=== PATIENT | female | born 1990 | race Caucasian/White ===

== ENCOUNTER 2017-12-07 00:52 | Emergency (ER) | payer MEDICAID ==
--- NOTE | 2017-12-07 01:43 | OBHP ---
Datetime: 12/07/2017 01:28 IP Adm Impression: , intrauterine ; No Active Labor IP Admit Plan: Discharge home Admit Comment, IP Provider: 27 y.o. , LMP 03/29/17, ESTEBAN 01/03/18, EGA 36w 1d c/o Ctx, onset 0500 hours 12/06/16; increasing throughout the day. Much stronger 2300 hours, pain scale 8/10, every 6-7 mnutes, and spacing out. (+) AFM, denies LOF, VB. care: [facility] - noted for 6th digit on fee t of fetus. Was to have ECHO - not done "insurance wouldn't cover it". No other issues P OB: x 2: 2010, 39 w, female, 5lb 10 oz. 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 2010, (+)chlamydiia. Denies fibroids or abnormal Pap PMH: denies PSH: denies NKDA Meds: PNV Soc Hx: denies tobacco, illicit drug or EtOH use. With FOB x 2 years. 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 Live s with her children Fam Hx: Mother alive 46 y.o. no med issues. Father due GSW. No known fam h/o cancer P.E.: as above. WD in NAD. Awake, alert, oriented to time, person and place. Pleasant and coopera tive Assessment: 27 y.o. P1102, 36w 1d, false labor. Category 1 tracing. GBS pending. Clinically stable . Plan: 1) Discharge home 2) Reviewed S/S PTL 3) Call to reschedule appointment: missed appt 12/05/17 Pelvic Type - PN: Adequate Extremities - PN: Normal Abdomen - PN: Normal Back - PN: Normal Breast - PN: Normal Lungs - PN: Normal Heart - PN: Normal Thyroid - PN: Not Done Neurologic - PN: Normal HEENT - PN: Normal General - PN: Normal FHR - Baseline A Provider: 130 Contraction Comments Provider: irregular Comments, ACOG Physical Exam: Abdomen: Gravid. Soft. Non tender All other systems reviewed and are negative Gestation - Est Wks by US: 36w 1d IP Hx Assessment: The History has been Reviewed and is Current EGA AdmitDate IP: 36.1 Vital Signs Provider: Reviewed; Within Normal Limits IP Chief Complaint: Uterine contractions NICHD Variability Prov Fetus A: Moderate 6-25bpm NICHD Accel Fetus A IP Provider: 15X15 FHR Category Provider Fetus A: Category I NICHD Decel Fetus A IP Provider: None Dilatation, Provider: FT Effacement, Provider: 50 Station, Provider: -3 Genitourinary Exam: Normal DTRs - PN: Not Done
[2017-12-07 08:57] VITALS: BP 126/73; PULSE 76; RESP 20; TEMP 97
== END 2017-12-07 01:39 | disposition home or self-care (01) ==
LOC: C.EROB 00:52
DX: O47.03 False labor before 37 completed weeks of gestation, third trimester (principal); Z3A.36 36 weeks gestation of pregnancy

== ENCOUNTER 2017-12-14 10:40 | Emergency (ER) | payer MEDICAID ==
--- NOTE | 2017-12-14 11:25 | OBDCSUM ---
Datetime: 12/07/2017 01:28 Disch Activity Restrictions: No sexual activity; Nothing in vagina - [place], tampons, douche Discharge Comment, Provider: dc home labor given po hy f/u clinic on tomorrow Discharge Diagnosis Prov Other: 37week nst false labor
--- NOTE | 2017-12-14 11:25 | OBHP ---
Datetime: 12/14/2017 11:19 IP Adm Impression: Term, intrauterine IP Admit Plan: Discharge home Admit Comment, IP Provider: at 37.1weeks came with c/o cts started yesterday, irrg , little anne ser than before, 11/05,no vb, lof+fm oibhx x pmh den med pnv all nkda psh den soch de ve closed a/p at 37+weeks in early labor dc home labor given po hy f/u clinic on tomorrow Pelvic Type - PN: Adequate Extremities - PN: Normal Abdomen - PN: Normal Back - PN: Normal Breast - PN: Normal Lungs - PN: Normal Heart - PN: Normal Thyroid - PN: Normal Neurologic - PN: Normal HEENT - PN: Normal General - PN: Normal FHR - Baseline A Provider: 140 Contraction Comments Provider: occ IP Hx Assessment: The History has been Reviewed and is Current EGA AdmitDate IP: 37.1 Vital Signs Provider: Reviewed; Within Normal Limits IP Chief Complaint: Uterine contractions NICHD Variability Prov Fetus A: Moderate 6-25bpm NICHD Accel Fetus A IP Provider: 15X15 FHR Category Provider Fetus A: Category II Dilatation, Provider: 0 Effacement, Provider: 40 Station, Provider: -3 Genitourinary Exam: Normal DTRs - PN: Normal
[2017-12-15 13:56] VITALS: BP 114/71; PULSE 92
== END 2017-12-14 11:50 | disposition home or self-care (01) ==
LOC: C.EROB 10:40
DX: O47.1 False labor at or after 37 completed weeks of gestation (principal); Z3A.37 37 weeks gestation of pregnancy

== ENCOUNTER 2018-01-10 19:43 | Inpatient (IN) | payer MEDICAID ==
[2018-01-10] MEDS ORDERED: Lactated Ringer's 1,000 ML IV SCH (20:45)
[2018-01-10] MEDS: Lactated Ringer's 1,000 ML IV SCH ×2 (20:55→22:15)
--- NOTE | 2018-01-10 20:58 | OBHP ---
Datetime: 01/10/2018 20:39 IP Adm Impression: Postterm, intrauterine ; No Active Labor; Intact Membranes IP Chief Complaint Other: pelvic pressure/ abdominal tightening IP Admit Plan: Admit to unit IP Admit Plan Other: Cervical ripening Admit Comment, IP Provider: 27 y.o. , LMP 03/29/17, ESTEBAN 01/03/18, EGA 41 weeks, c/o abdominal ti ghtening -intensifying all day today. (+) AFM; denies LOF, VB. Last had sexual intercourse 2 days ago . care: [facility]- - noted for (+) chlamydia -diagnosed 11/28/17; both patient and FOB treated 12/09/17. Denies any other issues. P Ob: x 2: 2011, 39 weeks, female, 5lb 11 oz. 2011, 36 weeks, male, 5lb 15 oz; no complication s. 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 2011, 9=0 chlamydia. Denies abnormal Pap, fibroids, ovarian cysts. PMH: denies PSH: denies NKDA Meds: PNV Soc Hx: denies tobacco, illicit drug or EtOH use.With FOB x 2 years. 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 Fam Hx. Mother alive 47 - no med issues. Father 2016, homicide. MGM - HTN, DM. No known f am h/o cancer P.E.: as above. WD in NAD. Awake, alert, oriented to time, person and place. Pleasant and cooperat misty Assessment: 27 y.o. P2, 41 weeks, prolonged latent phase of labor. Will admit for delivery. D/W pa tient cervical ripening; possible pitocin. Also D/W patient options for pain relief, if desires. Lisa ent expressed an understanding and agrees. No questions offered. Category 1 tracing. Patient is clini leonidas stable. Plan: 1) Admit 2) NPO 3) admission labs 4) Continuous EFM 5) Cytotec p.o. 6) Pain relief, upon request 7) Anticipate vaginal delivery Pelvic Type - PN: Adequate Extremities - PN: Normal Abdomen - PN: Normal Back - PN: Normal Breast - PN: Not Done Lungs - PN: Normal Heart - PN: Normal Thyroid - PN: Normal Neurologic - PN: Normal HEENT - PN: Normal General - PN: Normal Weight - Estimated: 7lb Presentation-Admit: Vertex FHR - Baseline A Provider: 135 Membranes, Provider: Intact Contraction Comments Provider: irregular Comments, ACOG Physical Exam: Abdomen: Gravid. soft. Non tender. Fundal height 39 cm All other systems reviewed and are negative Gestation - Est Wks by US: 41.0 IP Hx Assessment: The History has been Reviewed and is Current EGA AdmitDate IP: 41.0 Vital Signs Provider: Reviewed IP Indication for Induction: Postterm IP Chief Complaint: Other NICHD Variability Prov Fetus A: Moderate 6-25bpm NICHD Accel Fetus A IP Provider: 15X15 FHR Category Provider Fetus A: Category I NICHD Decel Fetus A IP Provider: None Dilatation, Provider: 2 Effacement, Provider: 30 Station, Provider: -3 Genitourinary Exam: Normal
[2018-01-10 21:40] LABS: SQUAMOUS EPITHIAL 2 /hpf (0-5); URINE BILIRUBIN NEGATIVE (NEGATIVE); URINE BLOOD NEGATIVE (NEGATIVE); URINE CLARITY Clear (Clear); URINE COLOR Yellow (YELLOW); URINE GLUCOSE (UA) NORMAL (Normal); URINE LEUKOCYTE ESTERASE NEG Leu/uL (Negative); URINE PROTEIN NEGATIVE (NEGATIVE); URINE UROBILINOGEN NORMAL mg/dL (0.2-1.0)
[2018-01-10 21:42] LABS: BASO % 0.4 % (0.0-2.0); EOS # 0.1 K/uL (0.0-0.7); EOS % 0.7 % (0.0-4.0); HEMOGLOBIN 11.8 g/dL (11.0-16.0); LYMPH % 21.4 % (20.0-40.0); MEAN CELL VOLUME 80.8 fL (81.0-99.0); MEAN CORPUSCULAR HEMOGLOBIN 27.5 pg (27.0-31.0); MEAN CORPUSCULAR HGB CONC 34.1 g/dL (33.0-37.0); MEAN PLATELET VOLUME 10.1 fL (7.2-11.7); MONO # 0.8 K/uL (0.0-0.8); MONO % 9.1 % (0.0-10.0); NEUT # 6.4 K/uL (1.8-7.0); NEUT % 68.4 % (50.0-75.0); RBC 4.27 Mil/uL (3.80-5.20); RED CELL DISTRIBUTION WIDTH 16.9 % (11.5-14.5); WHITE BLOOD COUNT 9.3 K/uL (4.8-10.8)
[2018-01-10 21:47] LABS: ALB/GLOB RATIO 0.9 (1.0-2.1); ALBUMIN 3.3 g/dL (3.5-5.0); ALT/SGPT 26 U/L (9-52); AST/SGOT 40 U/L (14-36); BLOOD UREA NITROGEN 12 mg/dL (7-17); GFR AFRICAN-AMERICAN > 60; GFR NON-AFRICAN AMERICAN > 60
[2018-01-11] MEDS ORDERED: Nalbuphine 20 mg/ml Inj (1 ml) IVP PRN (01:45)
[2018-01-11] MEDS ORDERED: Promethazine DM 6.25 mg-15 mg/5 ml Syrup PO STA (01:45)
[2018-01-11] MEDS ORDERED: Oxytocin 20 units in LR 2,000 ML IV ONE (04:20)
[2018-01-11] MEDS ORDERED: Lidocaine 2% MPF (5 ml) Inj ONE (04:43)
[2018-01-11] MEDS ORDERED: Oxycodone/Acetaminophen 5/325 mg Tab PO PRN (05:20)
--- NOTE | 2018-01-11 05:34 | OBDS ---
DELIVERY PERSONNEL Delivery Doctor: Franc Waddell MD MATERNAL INFORMATION Delivery Anesthesia: None Medications in Delivery: Nubain 10mg and phenergan syrup 5cc Estimated Blood Loss (ml): 300 Placenta Cultured: No Maternal Complications: None Provider Comments: Uncomplicated vaginal delivery live male infant, DOUGLAS. position, weight 7lb 8oz, A pgar's 05/07. 's mouth and nose bulb-suctioned on perineum. Umbilical cord doubly clamped and cut ; infant placed on mother's abdomen. Spontaneous delivery of placenta - grossly normal; 3 vessel cord . Uterine exploration performed - uterus contracted and firm. Cervix, vagina, perineum inspected - first degree laceration as above; repaired. Hemostasis assur ed. Mother and bonding; both in stable condition LABOR SUMMARY EDC: 01/03/2018 00:00 No. Babies in Womb: 1 Attempted: No Labor Anesthesia: None LABOR INFORMATION Reason for Induction: Postterm Onset of Labor: 01/11/2018 00:00 Complete Dilatation: 01/11/2018 04:15 Cervical Ripening Agents: Cytotec @ Oxytocin: N/A Group B Beta Strep: Negative Antibiotics # of Doses: 0 Antibiotics Time of Last Dose: 0 Steroids Given: None Reason Steroids Not Administered: Not Applicable MEMBRANES Membranes Rupture Method: Spontaneous Rupture of Membranes: 01/11/2018 04:00 Length of Rupture (hrs): 0.45 Amniotic Fluid Color: Clear Amniotic Fluid Amount: Small Amniotic Fluid Odor: Normal STAGES OF LABOR Stage 1 hrs: 4 Stage 1 min: 15 Stage 2 hrs: 0 Stage 2 min: 12 Stage 3 hrs: 0 Stage 3 min: 9 Total Time in Labor hrs: 4 Total Time in Labor min: 36 VAGINAL DELIVERY Episiotomy: None Laceration Extension: First Degree Laceration Type: Vaginal Laceration Repair: Yes Laceration Repair Note: 3-0 chromic - running interlocking. Hemostasis assured. Patient tolerated pr ocedure well Initial Vag Sponge Count: 10 Final Vag Sponge Count: 10 Initial Vag Sharps Count: 1 Final Vag Sharps Count: 1 Sponge Count Correct: Yes Sharps Count Correct: Yes Count Comment: Correct BABY A INFORMATION Infant Delivery Date/Time: 01/11/2018 04:27 Method of Delivery: Vaginal Born in Route : No : N/A Forceps: N/A Vacuum Extraction: N/A Shoulder Dystocia : No SHOULDER DYSTOCIA BABY A Delivery Date/Time: 01/11/2018 04:27 PRESENTATION/POSITION BABY A Presentation: Cephalic Cephalic Presentation: Vertex Vertex Position: Left Occipital Anterior Breech Presentation: N/A PLACENTA INFORMATION BABY A Placenta Delivery Time : 01/11/2018 04:36 Placenta Method of Delivery: Spontaneous Placenta Status: Delivered SCORES BABY A Heart Rate 1 min: >100 bpm Resp Effort 1 min: Good Cry Reflex Irritability 1 min: Cough or Sneeze or Pulls Away Muscle Tone 1 min: Active Motion Color 1 min: Body [place], Extremities Blue SCORE 1 MIN: 9 Heart Rate 5 min: >100 bpm Resp Effort 5 min: Good Cry Reflex Irritability 5 min: Cough or Sneeze or Pulls Away Muscle Tone 5 min: Active Motion Color 5 min: Body [place], Extremities Blue SCORE 5 MIN: 9 INFORMATION BABY A Gestational Age at Delivery: 41.1 Gestational Status: Term Outcome : Liveborn Condition : Stable Sex: Male IDENTIFICATION/MEDS BABY A ID Band Number: [id number] ID Band Location: Left Leg; Left Arm Sensor Applied: Yes Sensor Number: [id number] Sensor Location : Cord Clamp Vitamin K Given : Aquamephyton 1 mg IM; Left Thigh Erythromycin Given: Given Both Eyes WEIGHT/LENGTH BABY A Infant Birthweight (gms): 3410 Infant Weight (lb): 7 Weight (oz): 8 Infant Length Inches: 20.00 Length cms: 50.8 CORD INFORMATION BABY A No. Cord Vessels: 3 Nuchal Cord : N/A Cord Blood Taken: Yes Suction: Mouth; Nose ASSESSMENT BABY A Complications: None Physical Findings at Delivery: Within Normal Limits Respirations: Appears Normal Offal Icer Poultry/ALS Called : No Care By: Ivone Transferred To: Remains with Mother
[2018-01-11] MEDS ORDERED: Benzocaine/Menthol 20%-0.5% Topical Spray (60 ml) TOP SCH (06:00)
[2018-01-11] MEDS: Multiple Vitamins Tab PO SCH (09:56)
[2018-01-12 08:32] LABS: BASO # 0.1 K/uL (0.0-0.2); BASO % 0.5 % (0.0-2.0); EOS # 0.1 K/uL (0.0-0.7); EOS % 1.1 % (0.0-4.0); HEMOGLOBIN 10.7 g/dL (11.0-16.0); LYMPH % 30.2 % (20.0-40.0); MEAN CELL VOLUME 80.3 fL (81.0-99.0); MEAN CORPUSCULAR HEMOGLOBIN 27.1 pg (27.0-31.0); MEAN CORPUSCULAR HGB CONC 33.8 g/dL (33.0-37.0); MEAN PLATELET VOLUME 9.7 fL (7.2-11.7); MONO % 9.7 % (0.0-10.0); NEUT # 5.8 K/uL (1.8-7.0); NEUT % 58.5 % (50.0-75.0); RBC 3.95 Mil/uL (3.80-5.20); RED CELL DISTRIBUTION WIDTH 17.2 % (11.5-14.5)
[2018-01-12] MEDS: Multiple Vitamins Tab PO SCH (10:08)
[2018-01-12 17:32] VITALS: O2SAT 98
--- NOTE | 2018-01-13 10:06 | CP.PCM.PN ---
Subjective - Date & Time of Evaluation Date of Evaluation: 01/13/18 Time of Evaluation: 10:04 - Subjective Subjective: PPD#2 Pt doing well. No complaints today. Lochia moderate. Objective - Vital Signs/Intake and Output Vital Signs (last 24 hours): Temp Pulse Resp BP Pulse Ox 97.8 F 75 20 115/73 98 01/13/18 00:00 01/13/18 00:00 01/13/18 00:00 01/13/18 00:00 01/12/18 16:00 - Medications Medications: Current Medications Acetaminophen (Tylenol 325mg Tab) 650 mg PO Q6 PRN PRN Reason: Fever >100.4 F Benzocaine/Menthol (Dermoplast 20%-0.5%) 0 ml TOP Q6 [facility] Last Admin: 01/12/18 17:32 Dose: Not Given Ferrous Sulfate (Feosol) 325 mg PO DAILY [facility] Last Admin: 01/12/18 10:08 Dose: 325 mg Lactated Ringer's (Lactated Ringer's) 1,000 mls @ 125 mls/hr IV .Q8H [facility] Last Admin: 01/10/18 23:15 Dose: 125 mls/hr Oxytocin (Pitocin 20 Units In Lr) 1,000 mls @ 125 mls/hr IV .Q8H [facility] PRN Reason: Protocol Ibuprofen (Motrin Tab) 600 mg PO Q6 PRN PRN Reason: Pain, Mild (1-3) Last Admin: 01/12/18 17:33 Dose: 600 mg Multivitamins (Hexavitamin) 1 tab PO DAILY [facility] Last Admin: 01/12/18 10:08 Dose: 1 tab Oxycodone/Acetaminophen (Percocet 5/325 Mg Tab) 1 tab PO Q4H PRN PRN Reason: Pain, moderate (4-7) Stop: 01/14/18 05:21 Last Admin: 01/13/18 03:57 Dose: 1 tab Sennosides (Senokot Tab) 8.6 mg PO DAILY [facility] Last Admin: 01/12/18 10:09 Dose: Not Given - Labs Labs: 01/12/18 08:16 01/10/18 21:30 - Constitutional Appears: Well - Extremities Exam Extremities Exam: Calf Tenderness, Full ROM, Normal Capillary Refill, Normal Inspection, Tenderness - Additional Findings Additional findings: ABD: Soft, NT, Uterus firm below umbilicus Assessment and Plan - Assessment and Plan (Free Text) Assessment: S/P Doing well DC home F/U with clinic in 6 wks or earlier if needed Plan: DC home
[2018-01-13] MEDS: Multiple Vitamins Tab PO SCH (10:18)
--- NOTE | 2018-01-13 11:27 | OBPPN ---
Datetime: 01/12/2018 21:46 PP Nausea Prov: Denies PP BM Prov: No PP Breasts Prov: Normal PP Heart Prov: Normal PP Lungs Prov: Normal PP Abdomen/Uterus Prov: Normal PP Lochia Prov: Normal PP Vulva/Perineum Prov: Normal PP CVA Tenderness Prov: Normal PP Extremities Prov: Normal PP Progress Prov: Normal PP Comments Phys Exam Prov: Fundus firm at the umbilicus PP Impression Prov: Normal progression PP Plan Prov: Continue present management PP Progress Note Prov: PPD#1. tolerating PO diet, ambulating. 1) Routine PP Care. 2) Pt requests circumcision IP PP Procedures: None Vital Signs Provider PP: Reviewed
[2018-01-13 11:29] VITALS: BP 112/74; RESP 18; TEMP 97
--- NOTE | 2018-01-13 13:03 | OBPPN ---
Datetime: 01/13/2018 12:59 PP Pain Prov: Within normal limits PP Nausea Prov: Denies PP Flatus Prov: Yes PP BM Prov: Yes PP Abdomen/Uterus Prov: Normal PP Lochia Prov: Normal PP Extremities Prov: Normal PP Impression Prov: Normal progression PP Plan Prov: Discharge PP Progress Note Prov: PPD #2 Pt doing well DC instruction given F/U in the clinic in 6 wks or earlier if needed IP PP Procedures: None
[2018-01-13 21:11] VITALS: PULSE 104
== END 2018-01-13 15:05 | disposition home or self-care (01) | DRG 373 ==
LOC: C.EROB 19:43 → C.4D 20:32 → UNDOADMIN 20:32 → C.4D 20:40 → C.4M 01-11 06:50
PROVIDERS: ADMIT Obstetrics & Gynecology; ATTEND Obstetrics & Gynecology
PROC: 3E0P7VZ Introduction of Hormone into Female Reproductive, Via Natural or Artificial Opening (ICD-10-PCS; 2018-01-10)
PROC: 10E0XZZ Delivery of Products of Conception, External Approach (ICD-10-PCS; principal; 2018-01-11)
PROC: 0HQ9XZZ Repair Perineum Skin, External Approach (ICD-10-PCS; 2018-01-11)
DX: O48.0 Post-term pregnancy (principal); O70.0 First degree perineal laceration during delivery; Z86.19 Personal history of other infectious and parasitic diseases; Z3A.41 41 weeks gestation of pregnancy; Z37.0 Single live birth